=== PATIENT | male | born 1980 | race Caucasian/White ===

== ENCOUNTER 2018-08-27 23:55 | Emergency (ER) | payer MEDICAID ==
[~2018-08-27] VITALS: Ht 182.9 cm; Wt 99.8 kg
[2018-08-27 23:55] VITALS: BP 142/93
[2018-08-28] MEDS ORDERED: NACL 0.9% 1,000 ML IV ONE (00:10)
[2018-08-28] MEDS ORDERED: MORPHINE SULFATE 2 MG/ML SYR IVP ONE (00:10)
[2018-08-28] MEDS ORDERED: cefTRIAXone 1,000 MG VIAL ONE (00:28)
[2018-08-28 00:45] VITALS: BP 142/93
== END 2018-08-28 00:48 | disposition short-term general hospital (02) ==
LOC: MED 23:55
DX: S31.119A Laceration without foreign body of abdominal wall, unspecified quadrant without penetration into peritoneal cavity, initial encounter (principal); X99.1XXA Assault by knife, initial encounter; Y93.89 Activity, other specified; Y92.89 Other specified places as the place of occurrence of the external cause; Y99.8 Other external cause status
CPT/HCPCS: 90471; 90715; 96374; 96375; 99285; J0696; J2270; J7030

== ENCOUNTER 2018-11-08 17:12 | Emergency (ER) | payer MEDICAID ==
[~2018-11-08] VITALS: Ht 182.9 cm; Wt 90.7 kg
[2018-11-08 17:20] VITALS: BP 122/87
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
--- NOTE | 2018-11-08 19:28 | NUR ---
PLACED STAPLE REMOVER AT BEDSIDE
--- NOTE | 2018-11-08 19:40 | NUR ---
DR TAY REMOVING DENNIS AT BEDSIDE
[2018-11-08 19:59] VITALS: BP 122/87
--- NOTE | 2018-11-08 19:59 | NUR ---
Patient discharged without instruction, v/s stable.
== END 2018-11-08 19:59 | disposition home or self-care (01) ==
LOC: MED 17:12
DX: S31.119D Laceration without foreign body of abdominal wall, unspecified quadrant without penetration into peritoneal cavity, subsequent encounter (principal); W26.8XXD Contact with other sharp object(s), not elsewhere classified, subsequent encounter
CPT/HCPCS: 99281

== ENCOUNTER 2018-12-04 18:42 | Emergency (ER) | payer MEDICAID ==
[~2018-12-04] VITALS: Ht 182.9 cm; Wt 99.8 kg
[2018-12-04 18:53] VITALS: BP 152/84
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
--- NOTE | 2018-12-04 19:10 | NUR ---
RECIEVED REPORT FROM SRAVANTHI. PATIENT AWAKE AND ALERT IN BED. NO NEW NEEDS OR CONCERNS AT THIS TIME.
--- NOTE | 2018-12-04 19:10 | NUR ---
Pt report given to BRENDA ABEL. Transfer of care at this time.
[2018-12-04] MEDS ORDERED: BACITRACIN OINT 500 UNITS/GM PKT TP ONE (20:05)
--- NOTE | 2018-12-04 20:15 | NUR ---
WOUND CLEANED AND DRESSED ORDERED.
[2018-12-04 20:19] VITALS: BP 152/84
--- NOTE | 2018-12-04 20:19 | NUR ---
Patient discharged with v/s stable. Written and verbal after care instructions given and explained. Patient alert, oriented and verbalized understanding of instructions. Ambulatory with steady gait. All questions addressed prior to discharge. ID band removed. Patient advised to follow up with PMD. Rx of IBUPROFEN, BACITRACIN given. Patient educated on indication of medication including possible reaction and side effects. Opportunity to ask questions provided and answered.
== END 2018-12-04 20:19 | disposition home or self-care (01) ==
LOC: MED 18:42
DX: S61.401A Unspecified open wound of right hand, initial encounter (principal); Y04.0XXA Assault by unarmed brawl or fight, initial encounter; Y93.89 Activity, other specified; Y92.89 Other specified places as the place of occurrence of the external cause; Y99.8 Other external cause status
CPT/HCPCS: 99283

== ENCOUNTER 2021-05-05 02:45 | Inpatient (IN) | payer OTHER, SELFPAY ==
[~2021-05-05] VITALS: Ht 180.3 cm; Wt 108.4 kg
[2021-05-05 02:45] VITALS: BP 137/87
--- NOTE | 2021-05-05 02:45 | NUR ---
TO BED, BIBA , C/O SYNCOPE FOR A MINUTE.
--- NOTE | 2021-05-05 03:03 | NUR ---
PT PHUC CIFUENTES. TAKEN TO ER BED 7
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
--- NOTE | 2021-05-05 03:15 | NUR ---
IVY COLLECTED AND HANDED TO IVON FROM LAB
--- NOTE | 2021-05-05 03:28 | NUR ---
X-Ray at bedside.
--- NOTE | 2021-05-05 03:31 | NUR ---
LAB AT BEDSIDE
[2021-05-05 03:48] LABS: BASOPHILS # (AUTO) 0.1 K/uL (0.00-0.22); BASOPHILS % (AUTO) 0.7 % (0.0-2.0); EOSINOPHILS % (AUTO) 0.3 % (0.0-4.0); HEMATOCRIT 48.6 % (36-52); HEMOGLOBIN 16.8 g/dL (12.0-18.0); LYMPHOCYTES # (AUTO) 1.5 K/uL (2.0-11.5); LYMPHOCYTES % (AUTO) 16.2 % (20.5-51.1); MEAN CORPUSCULAR HEMOGLOBIN 31 pg (27-31); MEAN CORPUSCULAR HGB CONC 35 g/dL (33-37); MONOCYTES # (AUTO) 1.1 K/uL (0.8-1.0); MONOCYTES % (AUTO) 12.2 % (1.7-9.3); NEUTROPHILS # (AUTO) 6.3 K/uL (1.8-7.7); NEUTROPHILS % (AUTO) 70.6 % (42.2-75.2); PLATELET COUNT (AUTO) 173 K/uL (140-450); RED BLOOD CELL COUNT(AUTO) 5.46 MIL/uL (4.20-6.10); RED CELL DISTRIBUTION WIDTH 14.3 % (11.6-13.7)
[2021-05-05 04:00] LABS: PROTHROMBIN TIME 11.6 secs (10.8-13.4)
[2021-05-05 04:20] LABS: ANION GAP 13.4 (8-16); CARBON DIOXIDE 22.4 mmol/L (21-32); CREATININE 1.5 mg/dL (0.6-1.3); POTASSIUM 3.8 mmol/L (3.5-5.1)
[2021-05-05] MEDS ORDERED: ASPIRIN 325 MG TAB PO ONE (04:50)
[2021-05-05] MEDS ORDERED: LISI-486 PO (04:52)
[2021-05-05] MEDS ORDERED: FURO-572 PO (04:52)
[2021-05-05] MEDS ORDERED: AMLO5TAB PO (04:52)
[2021-05-05] MEDS ORDERED: SPIR25TA PO (04:52)
--- NOTE | 2021-05-05 07:25 | NUR ---
REPORT GIVEN TO PAGE CHACON. TRANSFER OF CARE AT THIS TIME.
--- NOTE | 2021-05-05 07:25 | NUR ---
REPORT RECEIVED FROM AISHWARYA RN, TRANSFER OF CARE AT THIS TIME
--- NOTE | 2021-05-05 07:45 | NUR ---
PT RESTING WITH EYES CLOSED, BREATHING EVEN AND UNLABORED. NO DISTRESS NOTED.
[2021-05-05] MEDS ORDERED: ACETAMINOPHEN 325 MG TAB PO PRN (08:15)
[2021-05-05] MEDS ORDERED: ZOLPIDEM 5 MG TAB PO PRN (08:15)
[2021-05-05] MEDS ORDERED: POTASSIUM CHLORIDE 10 MEQ TABER PO PRN (08:15)
[2021-05-05] MEDS ORDERED: guaiFENesin DM 200/20 MG-10 ML 10 ML UDC PO PRN (08:15)
[2021-05-05] MEDS ORDERED: ONDANSETRON 4 MG/2 ML VIAL IM/IVP PRN (08:15)
[2021-05-05] MEDS ORDERED: DOCUSATE SODIUM 100 MG GELCAP PO PRN (08:15)
[2021-05-05] MEDS ORDERED: NITROGLYCERIN 0.4 MG TAB SL PRN (08:15)
[2021-05-05] MEDS ORDERED: NACL 0.9% 1,000 ML IV SCH (08:15)
[2021-05-05] MEDS ORDERED: HYDROcodone/APAP 7.5/325 MG 1 TAB PO PRN (08:15)
[2021-05-05] MEDS ORDERED: lisinopriL 5 MG TAB PO SCH (09:00)
[2021-05-05] MEDS ORDERED: amLODIPine 5 MG TAB PO SCH (09:00)
[2021-05-05 09:11] LABS: BARBITURATE, URINE NEGATIVE ng/ml (NEG <=200); BENZODIAZEPINE, URINE NEGATIVE ng/mL (NEG <=200); CANNABINOID, URINE POSITIVE ng/mL (NEG <=50); COCAINE, URINE NEGATIVE ng/mL (NEG <=300); OPIATE, URINE NEGATIVE ng/mL (NEG <=2000); PHENCYCLIDINE SCREEN,URINE NEGATIVE ng/mL (NEG <=25)
[2021-05-05 09:31] LABS: CHOL/HDL RATIO 5.8 (1-4.5); FREE T4 (FREE THYROXINE) 0.96 ng/dL (0.76-1.46); MAGNESIUM 1.9 mg/dL (1.8-2.4); PHOSPHORUS 3.8 mg/dL (2.5-4.9); THYROID STIMULATING HORMONE 2.79 uIU/mL (0.34-3.74)
[2021-05-05] MEDS ORDERED: CRUSHER, PILL MC ONE (09:36)
[2021-05-05] MEDS: METOPROLOL 25 MG TAB PO SCH ×2 (09:43→20:51)
[2021-05-05] MEDS: lisinopriL 10 MG TAB PO SCH (09:43)
[2021-05-05] MEDS: PANTOPRAZOLE 40 MG TABEC PO SCH (09:44)
[2021-05-05] MEDS: SPIRONOLACTONE 25 MG TAB PO SCH (09:44)
[2021-05-05] MEDS: ECOTRIN 81 MG TABEC PO SCH (09:44)
[2021-05-05] MEDS: FUROSEMIDE 20 MG TAB PO SCH (09:45)
--- NOTE | 2021-05-05 11:00 | NUR ---
PT RESTING WITH EYES CLOSED, BREATHING EVEN AND UNLABORED. NO DISTRESS NOTED.
--- NOTE | 2021-05-05 11:20 | NUR ---
Dr. Hill at bedside with Pt.
--- NOTE | 2021-05-05 14:07 | NUR ---
Patient will be admitted to care of Dr Hill. Admited to [facility]. Will go to room 124A. Belongings list completed. Report to Lilli ABEL.
[2021-05-05 15:00] VITALS: BP 123/85
--- NOTE | 2021-05-05 15:15 | NUR ---
Admitted from ED, with chief complaint of SYNCOPE, SOB. PT IS A 40 y/o ,Male, Appropriate,oriented to call light, bed, phone,television, bathroom, smoking policy,visiting hours, procedures, ID bracelet on. Belongings list checked. INSTRUCTED PT TO CALL FOR ASSISTANCE, CALL LIGHT WITHIN REACH, VERBALIZED UNDERSTANDING.
[2021-05-05] MEDS: ATORVASTATIN 20 MG TAB PO SCH ×2 (17:00→19:19)
--- NOTE | 2021-05-05 19:30 | NUR ---
PT RESTING. NO SOB NOTED. NO COMPLAINTS MADE. ENDORSED TO NEXT SHIFT NURSE FOR CONTINUITY OF CARE.
--- NOTE | 2021-05-05 19:31 | NUR ---
RECEIVED PATIENT FROM AM NURSE FOR CONTINUITY OF CARE. PATIENT IS RESTING IN BED, AROUSABLE TO VOICE. A/A/O X4. RESPIRATORY EVEN AND UNLABORED, ON 3L OXYGEN VIA NC. NO SIGN OF DISTRESS NOTED. SKIN WARM, DRY, NON DIAPHORETIC. IV ON LEFT HAND 20G, INTACT AND PATENT, SALINE LOCK. PATIENT DENIES ANY PAIN OR DISCOMFORT. ABLE TO MAKE NEEDS KNOWN. PLAN OF CARE DISCUSSED, PATIENT VERBALIZED UNDERSTANDING. CALL LIGHT WITHIN REACH. WILL CONTINUE TO MONITOR.
[2021-05-05 20:00] VITALS: BP 115/64
--- NOTE | 2021-05-05 20:28 | NUR ---
RECEIVED CALL FROM LAB TO REPORT CRITICAL LAB VALUE, TROPONIN 0.297, IS TRENDING DOWN. PATIENT IS STABLE. DENIES ANY CHEST PAIN, DIZZINESS, HEADACHE OR BLURRY VISION. WILL CONTINUE TO MONITOR.
--- NOTE | 2021-05-05 20:51 | NUR ---
SCHEDULE MEDICATIONS GIVEN WITH EDUCATION, PATIENT VERBALIZED UNDERSTANDING. NO SIGN OF DISTRESS NOTED. CALL LIGHT WITHIN REACH. WILL CONTINUE TO MONITOR.
--- NOTE | 2021-05-06 | NUR ---
ROUND CHECK. PATIENT IS SLEEPING, CHEST RISE AND FALL, NO SIGN OF RESPIRATORY DISTRESS. CALL LIGHT WITHIN REACH. WILL CONTINUE TO MONITOR.
--- NOTE | 2021-05-06 02:00 | NUR ---
ROUND CHECK. PATIENT IS SLEEPING, CHEST RISE AND FALL, NO SIGN OF DISTRESS NOTED. CALL LIGHT WITHIN REACH. WILL CONTINUE TO MONITOR.
[2021-05-06 04:00] VITALS: BP 140/90
--- NOTE | 2021-05-06 04:00 | NUR ---
ROUND CHECK. PATIENT IS SLEEPING, AROUSABLE TO VOICE. CHEST RISE AND FALL, NO SIGN OF DISTRESS NOTED. VITAL SIGNS WITHIN NORMAL LIMIT. CALL LIGHT WITHIN REACH. WILL CONTINUE TO MONITOR.
--- NOTE | 2021-05-06 06:00 | NUR ---
ROUND CHECK. PATIENT IS SLEEPING, AROUSABLE TO VOICE. CHEST RISE AND FALL, NO SIGN OF DISTRESS NOTED. CALL LIGHT WITHIN REACH. WILL CONTINUE TO MONITOR.
[2021-05-06 06:19] LABS: ANION GAP 12.8 (8-16); CARBON DIOXIDE 22.4 mmol/L (21-32); CREATININE 1.2 mg/dL (0.6-1.3); POTASSIUM 4.2 mmol/L (3.5-5.1)
[2021-05-06 06:52] LABS: BASOPHILS # (AUTO) 0.1 K/uL (0.00-0.22); BASOPHILS % (AUTO) 0.6 % (0.0-2.0); EOSINOPHILS # (AUTO) 0.1 K/uL (0-0.4); EOSINOPHILS % (AUTO) 0.6 % (0.0-4.0); HEMATOCRIT 51.7 % (36-52); HEMOGLOBIN 17.4 g/dL (12.0-18.0); LYMPHOCYTES # (AUTO) 1.5 K/uL (2.0-11.5); LYMPHOCYTES % (AUTO) 14.6 % (20.5-51.1); MEAN CORPUSCULAR HEMOGLOBIN 30 pg (27-31); MEAN CORPUSCULAR HGB CONC 34 g/dL (33-37); MEAN CORPUSCULAR VOLUME 90.2 fL (80-94); MONOCYTES # (AUTO) 1.1 K/uL (0.8-1.0); MONOCYTES % (AUTO) 10.5 % (1.7-9.3); NEUTROPHILS # (AUTO) 7.5 K/uL (1.8-7.7); NEUTROPHILS % (AUTO) 73.7 % (42.2-75.2); PLATELET COUNT (AUTO) 186 K/uL (140-450); RED BLOOD CELL COUNT(AUTO) 5.73 MIL/uL (4.20-6.10); RED CELL DISTRIBUTION WIDTH 14.1 % (11.6-13.7); WHITE BLOOD COUNT (AUTO) 10.2 K/uL (4.8-10.8)
[2021-05-06 07:08] LABS: T4 (THYROXINE) 5.9 ug/dL (4.5-12.0)
--- NOTE | 2021-05-06 07:09 | NUR ---
PATIENT HAS BEEN SCREENED AND CATEGORIZED MODERATE NUTRITION RISK. PATIENT WILL BE SEEN WITHIN 3-5 DAYS OF ADMISSION. 05/08/21-05/10/21 TRICE GUTIERREZ MS, RDN
--- NOTE | 2021-05-06 07:10 | NUR ---
ENDORSED PATIENT TO AM NURSE FOR CONTINUITY OF CARE. PATIENT IS STABLE.
--- NOTE | 2021-05-06 07:30 | NUR ---
PT AAOX4. NO SOB NOTED. NO C/O PAIN AT THIS TIME. IV TO LAC PATENT AND INTACT. CHEST DIMINISHED AIR ENTRY TO THE BASES, PT ON 3 LPM O2 VIA NASAL CANNULA. ABDOMEN SOFT, BOWEL SOUNDS PRESENT. INSTRUCTED PT TO CALL FOR ASSISTANCE, CALL LIGHT WITHIN REACH, PT VERBALIZED UNDERSTANDING.
[2021-05-06 08:00] VITALS: BP 140/95
[2021-05-06] MEDS: PANTOPRAZOLE 40 MG TABEC PO SCH (09:00)
[2021-05-06] MEDS: lisinopriL 10 MG TAB PO SCH (09:01)
[2021-05-06] MEDS: ECOTRIN 81 MG TABEC PO SCH (09:01)
[2021-05-06] MEDS: SPIRONOLACTONE 25 MG TAB PO SCH (09:01)
[2021-05-06] MEDS: FUROSEMIDE 20 MG TAB PO SCH (09:02)
[2021-05-06] MEDS: METOPROLOL 25 MG TAB PO SCH ×2 (09:06→21:32)
[2021-05-06 16:00] VITALS: BP 125/92
[2021-05-06] MEDS ORDERED: MECLIZINE 25 MG TAB PO PRN (17:55)
[2021-05-06] MEDS ORDERED: INSULIN LISPRO SLIDING SCALE 100 UNITS/ML VIAL SUBQ PRN (18:00)
[2021-05-06] MEDS ORDERED: DEXTROSE 50% 50 ML SYR IVP PRN (18:00)
[2021-05-06] MEDS: ATORVASTATIN 20 MG TAB PO SCH (18:51)
--- NOTE | 2021-05-06 19:31 | NUR ---
RECD. RESTING IN BED, AWAKE, A/OX4. RESPIRATION EVEN AND UNLABORED. ON 02 AT 2 LITERS VIA N/C. IV SALINE LOCK AT THE LEFT HAND G20, PATENT AND INTACT. ABLE TO AMBULATE BY HIMSELF. MEDICATIONS FOR THE NIGHT DISCUSSED WITH PATIENT. VERBALIZED UNDERSTANDING. DENIES PAIN 0/10.
[2021-05-06 20:00] VITALS: BP_SYST 121; BP_SYST 125; BP_SYST 137; BP_DIAS 75; BP_DIAS 79; BP_DIAS 97
--- NOTE | 2021-05-06 20:30 | NUR ---
TECH AT THE BEDSIDE DOING ULTRA SOUND OF BILATERAL CAROTID ARTERIES.
--- NOTE | 2021-05-06 21:00 | NUR ---
RESTING IN BED, BACK FROM CT SCAN OF HEAD. NO COMPLAINT OF DIZZINESS.
[2021-05-06] MEDS: BLOOD GLUCOSE MONITORING 1 DEV DEV FS SCH (21:37)
[2021-05-07] VITALS: BP 138/95
--- NOTE | 2021-05-07 | NUR ---
SLEEPING COMFORTABLY IN BED.
--- NOTE | 2021-05-07 02:00 | NUR ---
SLEEPING ON HIS LEFT SIDE, RESPIRATION EVEN AND UNLABORED.
[2021-05-07 04:00] VITALS: BP 149/82
--- NOTE | 2021-05-07 04:00 | NUR ---
NO COMPLAINT OF DIZZINESS, 02 SAT - 94% ON ROOM AIR.
[2021-05-07 05:13] LABS: BASOPHILS # (AUTO) 0.1 K/uL (0.00-0.22); BASOPHILS % (AUTO) 0.6 % (0.0-2.0); EOSINOPHILS % (AUTO) 0.4 % (0.0-4.0); HEMATOCRIT 51.5 % (36-52); HEMOGLOBIN 17.5 g/dL (12.0-18.0); LYMPHOCYTES # (AUTO) 1.5 K/uL (2.0-11.5); MEAN CORPUSCULAR HEMOGLOBIN 31 pg (27-31); MEAN CORPUSCULAR HGB CONC 34 g/dL (33-37); MEAN CORPUSCULAR VOLUME 89.9 fL (80-94); MONOCYTES # (AUTO) 1.2 K/uL (0.8-1.0); MONOCYTES % (AUTO) 12.2 % (1.7-9.3); NEUTROPHILS # (AUTO) 7.1 K/uL (1.8-7.7); NEUTROPHILS % (AUTO) 71.8 % (42.2-75.2); PLATELET COUNT (AUTO) 201 K/uL (140-450); RED BLOOD CELL COUNT(AUTO) 5.74 MIL/uL (4.20-6.10); RED CELL DISTRIBUTION WIDTH 14.3 % (11.6-13.7); WHITE BLOOD COUNT (AUTO) 9.9 K/uL (4.8-10.8)
[2021-05-07 05:54] LABS: ANION GAP 14.9 (8-16); CARBON DIOXIDE 24.3 mmol/L (21-32); CREATININE 1.2 mg/dL (0.6-1.3); POTASSIUM 4.2 mmol/L (3.5-5.1)
--- NOTE | 2021-05-07 06:00 | NUR ---
BLOOD SUGAR - 96. NO INSULIN COVERAGE.
[2021-05-07] MEDS: BLOOD GLUCOSE MONITORING 1 DEV DEV FS SCH (06:20)
--- NOTE | 2021-05-07 06:50 | NUR ---
Patient's Plan of Care was discussed and reviewed with VOLTAGE TESTER: VITALIY PAN RN 02 KAVEH CHEEMALL
--- NOTE | 2021-05-07 07:25 | NUR ---
CONDITION REMAIN STABLE. ENDORSED TO CHARGE NURSE MORRIS FOR CONTINUITY OF CARE.
--- NOTE | 2021-05-07 07:30 | NUR ---
PT AAOX4. NO SOB NOTED. NO C/O PAIN AT THIS TIME. IV TO LAC PATENT AND INTACT. CHEST DIMINISHED AIR ENTRY TO THE BASES, PT ON ROOM AIR AT 96-98% O2 SATS. ABDOMEN SOFT, BOWEL SOUNDS PRESENT. INSTRUCTED PT TO CALL FOR ASSISTANCE, CALL LIGHT WITHIN REACH, PT VERBALIZED UNDERSTANDING.
[2021-05-07 08:00] VITALS: BP 131/103
[2021-05-07] MEDS: ECOTRIN 81 MG TABEC PO SCH (09:06)
[2021-05-07] MEDS: FUROSEMIDE 20 MG TAB PO SCH (09:07)
[2021-05-07] MEDS: lisinopriL 10 MG TAB PO SCH (09:07)
[2021-05-07] MEDS: SPIRONOLACTONE 25 MG TAB PO SCH (09:07)
[2021-05-07] MEDS: METOPROLOL 25 MG TAB PO SCH (09:07)
[2021-05-07] MEDS: PANTOPRAZOLE 40 MG TABEC PO SCH (09:09)
--- NOTE | 2021-05-07 12:00 | NUR ---
PT SEEN BY ONEL PINTO AT THE BEDSIDE WITH DISCHARGE ORDER.
[2021-05-07] MEDS ORDERED: ASPI-1856 PO (12:25)
[2021-05-07] MEDS ORDERED: PANT40EC56 PO (12:25)
[2021-05-07] MEDS ORDERED: METO25TA PO (12:25)
[2021-05-07] MEDS ORDERED: ATOR20TA40 PO (12:25)
[2021-05-07] MEDS ORDERED: METF500T PO (12:26)
--- NOTE | 2021-05-07 13:30 | NUR ---
DISCHARGE INSTRUCTIONS GIVEN TO PT WHICH VERBALIZED FULL UNDERSTANDING OF THE TEACHINGS GIVEN AND THE NEED TO FF UP WITH OWN PCP IN 3-5 DAYS. PT MADE AWARE THAT HIS PRESCRIPTIONS WERE SENT TO HIS PREFERRED PHARMACY. PT REFUSED TO SIGNS HOMELESS WAIVER, STATED HIS MOM WILL PICK HIM UP AND BRING HIM HOME. ARM BANDS AND IV REMOVED, CANNULA TIP INTACT.
--- NOTE | 2021-05-07 14:00 | NUR ---
PT ESCORTED TO THE FRONT LOBBY IN STABLE CONDITION, AMBULATORY WITH STEADY GAIT. NO COMPLAINTS MADE. PT IS D/C HOME WITH FAMILY.
[2021-05-07] MEDS ORDERED: FUROSEMIDE 40 MG/4 ML VIAL IVP SCH (17:00)
== END 2021-05-07 14:00 | disposition home or self-care (01) | DRG 812 ==
LOC: MED 02:45 → MMU 06:10 → MTU 14:49 → OBSVTOIN 05-06 12:13
PROVIDERS: ADMIT Family Medicine; ATTEND Family Medicine
DX: T43.621A Poisoning by amphetamines, accidental (unintentional), initial encounter (principal); N17.0 Acute kidney failure with tubular necrosis; I21.4 Non-ST elevation (NSTEMI) myocardial infarction; G92 Toxic encephalopathy; I50.43 Acute on chronic combined systolic (congestive) and diastolic (congestive) heart failure; I11.0 Hypertensive heart disease with heart failure; E78.2 Mixed hyperlipidemia; Z20.822 Contact with and (suspected) exposure to COVID-19; E66.9 Obesity, unspecified; E11.65 Type 2 diabetes mellitus with hyperglycemia; I27.20 Pulmonary hypertension, unspecified; Y92.89 Other specified places as the place of occurrence of the external cause; Z68.33 Body mass index [BMI] 33.0-33.9, adult; F12.929 Cannabis use, unspecified with intoxication, unspecified
CPT/HCPCS: G0378 ×30; 36415; 70450; 71045; 80048; 80305; 82150; 82948; 83036; 83690; 83735; 83880; 84100; 84436; 84439; 84443; 84479; 84484; 85025; 85610; 87081; 93005; 93880; G0482; J1644